=== PATIENT | female | born 1990 | race Caucasian/White ===

== ENCOUNTER 2019-05-30 21:42 | Inpatient (IN) ==
[2019-05-30] MEDS ORDERED: BUTORPHANOL 2 MG/ML VIAL IV PRN (21:53)
[2019-05-30] MEDS ORDERED: ACETAMINOPHEN 325 MG TABLET PO PRN (21:53)
[2019-05-30 22:15] LABS: Basophils % 0.3 % (0.0-0.8); Eosinophils # 0.1 10*3/uL (0.0-0.87); Eosinophils % 0.9 % (0.00-10.9); Hemoglobin 11.9 GM/DL (12.0-16.0); Immature Granulocytes % 0.7 %; Immature Granulocytes Absolute 0.08 #; Lymphocytes # 1.6 10*3/uL (1.4-4.0); Lymphocytes % 14.3 % (21.3-54.2); Mean Corpuscular Volume 87.5 FL (87-102); Mean Platelet Volume 11.4 FL (9.6-12.0); Monocytes % 8.8 % (1.7-12.7); Platelet Count 259 T/CUMM (130-400); Red Cell Distribution Width 12.4 % (9.3-17.3); White Blood Count 10.9 T/CUMM (4-12)
[2019-05-31] MEDS ORDERED: AMPICILLIN INJ 2,000 MG in SODIUM CHLORIDE 0.9% 100 ML IV ONE
[2019-05-31] MEDS: LACTATED RINGERS 1,000 ML IV SCH ×3 (01:13→15:43)
[2019-05-31] MEDS: AMPICILLIN INJ 1,000 MG in SODIUM CHLORIDE 0.9% 100 ML IV SCH ×4 (04:47→16:04)
[2019-05-31] MEDS ORDERED: BUTORPHANOL 1 MG/ML VIAL ONE (06:07)
[2019-05-31] MEDS ORDERED: BUTORPHANOL 1 MG/ML VIAL IV PRN (06:09)
[2019-05-31] MEDS: ONDANSETRON 4 MG/2 ML VIAL IV PRN ×2 (06:14→13:41)
[2019-05-31] MEDS: MEPERIDINE 50 MG/1 ML VIAL IV PRN ×3 (10:43→18:21)
[2019-05-31] MEDS ORDERED: FAMOTIDINE 20 MG/2 ML VIAL IV ONE (14:34)
[2019-05-31] MEDS ORDERED: diphenhydrAMINE 50 MG/1 ML VIAL IV PRN ×2 (14:34)
[2019-05-31] MEDS ORDERED: CITRIC ACID/SODIUM CITRATE 30 ML UDCUP PO ONE (14:34)
[2019-05-31] MEDS ORDERED: ePHEDrine 50 MG/ML AMP IV PRN (14:34)
[2019-05-31] MEDS ORDERED: LACTATED RINGERS 1,000 ML IV ONE (14:34)
[2019-05-31] MEDS ORDERED: hydrOXYzine HCL 25 MG/1 ML VIAL IM PRN (14:34)
[2019-05-31] MEDS ORDERED: ONDANSETRON 4 MG/2 ML VIAL IV ONE (14:34)
[2019-05-31] MEDS ORDERED: NALOXONE 0.4 MG/ML VIAL IV PRN (14:34)
[2019-05-31] MEDS ORDERED: PROMETHAZINE 25 MG/1 ML VIAL IM ONE (14:34)
[2019-05-31] MEDS ORDERED: fentaNYL 2 MCG/ROPIV 0.2% EPID 100 ML EPIDURAL SCH (15:00)
[2019-05-31 16:07] LABS: Apearance,Urine CLEAR (Clear); Bilirubin,Urine Negative (Negative); Blood, Urine Negative (Negative); Glucose,Urine (UA) Negative (Negative); Ketones,Urine 20 mg/dL (Negative); Mucus,Urine Occasional /LPF (Occasional); Nitrite,Urine Negative (Negative); Protein,Urine Negative; RBC,Urine 1 /HPF (0-4); Squamous Epithelial Cell,Urine Occasional /HPF (0-10); Urine Color Yellow (Yellow); Urine Specific Gravity 1.021 (1.001-1.035); Urine Urobilinogen < 2.0 EU/DL (0.2-1.0); WBC,Urine 1 /HPF (0-6)
[2019-05-31] MEDS ORDERED: OXYTOCIN/LR 20 UNIT/1,000 ML BAG IV SCH (16:30)
[2019-05-31] MEDS ORDERED: LIDOCAINE 1% 50 ML VIAL ONE (17:30)
[2019-05-31] MEDS ORDERED: miSOPROStoL 200 MCG TABLET ONE (17:30)
[2019-05-31] MEDS ORDERED: DIPH/TET/ACEL PERT BOOSTER VACCINE 0.5 ML VIAL IM ONE (18:27)
[2019-05-31] MEDS ORDERED: HYDROCORTISONE 2.5% RECTAL CREAM 30 GM TUBE TOP PRN (18:27)
[2019-05-31] MEDS ORDERED: MEASLES/MUMPS/RUBELLA VACCINE 0.5 ML VIAL SUBCUT ONE (18:27)
[2019-05-31] MEDS ORDERED: LANOLIN 50% CREAM 0.3 OZ TUBE TOP PRN (18:27)
[2019-05-31] MEDS ORDERED: ACETAMINOPHEN 325 MG TABLET PO PRN (18:27)
[2019-05-31] MEDS ORDERED: oxyCODONE/ACETAMINOPHEN 5-325 MG TABLET PO PRN (18:27)
[2019-05-31] MEDS ORDERED: ONDANSETRON 4 MG/2 ML VIAL IV PRN (18:27)
[2019-05-31] MEDS ORDERED: WITCH HAZEL PADS 100/JAR TOP PRN (18:27)
[2019-05-31] MEDS ORDERED: OXYTOCIN/LR 20 UNIT/1,000 ML BAG IV ONE (18:27)
[2019-05-31] MEDS ORDERED: BISACODYL 10 MG SUPP RECTAL PRN (18:27)
[2019-05-31] MEDS ORDERED: BENZOCAINE 20%/MENTHOL 0.5% SPRAY 56 GM CAN TOP PRN (18:27)
[2019-05-31] MEDS ORDERED: RHO(D) IMMUNE GLOBULIN 300 MCG SYRINGE IM ONE (18:27)
[2019-05-31] MEDS: IBUPROFEN 800 MG TABLET PO PRN (22:24)
[2019-05-31] MEDS: DOCUSATE SODIUM 100 MG CAPSULE PO SCH (22:43)
[2019-06-01] MEDS: oxyCODONE/ACETAMINOPHEN 5-325 MG TABLET PO PRN ×3 (03:28→21:00)
[2019-06-01 04:51] LABS: Basophils % 0.2 % (0.0-0.8); Eosinophils # 0.1 10*3/uL (0.0-0.87); Eosinophils % 0.5 % (0.00-10.9); Hematocrit 28.9 VOL% (35.7-47.0); Immature Granulocytes % 0.5 %; Immature Granulocytes Absolute 0.07 #; Lymphocytes # 1.4 10*3/uL (1.4-4.0); Lymphocytes % 11.1 % (21.3-54.2); Mean Corpuscular HGB Conc 34.6 GM/DL (32-36); Mean Corpuscular Volume 88.1 FL (87-102); Mean Platelet Volume 11.5 FL (9.6-12.0); Neutrophils % 74.7 % (38.7-73.9); Platelet Count 204 T/CUMM (130-400); Red Blood Count 3.28 MC/CUMM (3.8-5.5); Red Cell Distribution Width 12.4 % (9.3-17.3); White Blood Count 12.9 T/CUMM (4-12)
[2019-06-01] MEDS: IBUPROFEN 800 MG TABLET PO PRN ×2 (07:49→14:52)
[2019-06-01] MEDS: DOCUSATE SODIUM 100 MG CAPSULE PO SCH ×2 (08:05→20:59)
[2019-06-01] MEDS ORDERED: RHO(D) IMMUNE GLOBULIN 300 MCG SYRINGE IM ONE (12:00)
[2019-06-02] MEDS: IBUPROFEN 800 MG TABLET PO PRN (01:35)
[2019-06-02] MEDS: oxyCODONE/ACETAMINOPHEN 5-325 MG TABLET PO PRN (04:11)
[2019-06-02] MEDS: DOCUSATE SODIUM 100 MG CAPSULE PO SCH (10:06)
[2019-06-02 14:17] VITALS: BP 123/77
== END 2019-06-02 12:45 | disposition home or self-care (01) | DRG 807 ==
LOC: N.LDOUT 21:42 → N.LD 21:45 → N.OB 05-31 21:12
PROVIDERS: ADMIT Specialist; ATTEND Specialist